=== PATIENT | female | born 1960 | race Caucasian/White ===

== ENCOUNTER → 2018-04-19 09:12 | Outpatient (CLI) | payer OTHER, SELFPAY ==
[2018-04-19 11:41] LABS: Hep C Virus Ab w/Reflex Quant NEGATIVE s/c (NEGATIVE)
== END ==
PROVIDERS: PCP Specialist; Visit Provider Specialist
DX: Z11.59 Encounter for screening for other viral diseases (principal)
CPT/HCPCS: 36415; 86803

== ENCOUNTER → 2018-10-15 16:04 | Outpatient (CLI) | payer OTHER, SELFPAY ==
[2018-10-15 18:17] LABS: Appearance Urine UA CLOUDY; Bilirubin Urine UA NEGATIVE (NEGATIVE); Color Urine UA YELLOW; Glucose Urine UA NEGATIVE (Normal); Ketones Urine UA NEGATIVE (NEGATIVE); Leukocyte Esterase Urine UA TRACE (NEGATIVE); Nitrite Urine UA NEGATIVE (Negative); Occult Blood Urine UA NEGATIVE (Negative); Protein Urine UA NEGATIVE (Negative); Specific Gravity Urine UA 1.025 (1.000-1.035); Urobilinogen Urine UA 0.2 E.U./dL (0.2)
[2018-10-15 18:28] LABS: Bacteria Urine Many (>30); Culture Indicated Urine Cult Not Indicated; Mucus Urine 1+ (Negative); RBC Urine 0-1/HPF (0-5/HPF); Squamous Epithelial Cell Urine >30 /HPF; Urine Comments EPI CONTAMINATION; WBC Urine 10-30/HPF (0-5/HPF)
== END ==
PROVIDERS: PCP Specialist; Visit Provider Specialist
DX: R30.0 Dysuria (principal)
CPT/HCPCS: 81001

== ENCOUNTER → 2018-10-16 15:59 | Outpatient (CLI) | payer OTHER, SELFPAY | PROVIDERS: PCP Specialist; Visit Provider Specialist | DX: R30.0 Dysuria (principal) | CPT/HCPCS: 87077; 87086 ==

== ENCOUNTER → 2019-05-21 09:42 | Outpatient (CLI) | payer OTHER, SELFPAY ==
[2019-05-21 16:41] LABS: Free T4, Direct Thyroxine 1.31 ng/dL (0.78-2.19)
[2019-05-21 16:55] LABS: Thyroid Stimulating Hormone 1.16 uIU/mL (0.47-4.68)
== END ==
PROVIDERS: PCP Specialist; Visit Provider Specialist
DX: E03.9 Hypothyroidism, unspecified (principal); R53.83 Other fatigue
CPT/HCPCS: 36415; 84439; 84443

== ENCOUNTER → 2021-01-01 09:37 | Outpatient (CLI) | payer OTHER, SELFPAY ==
[2021-01-01 11:13] LABS: COVID19 -Nasal RAPID Negative (Negative)
== END ==
PROVIDERS: Visit Provider Surgery
DX: Z01.812 Encounter for preprocedural laboratory examination (principal); Z20.822 Contact with and (suspected) exposure to COVID-19
CPT/HCPCS: 87635; C9803

== ENCOUNTER 2021-01-04 06:57 | Day surgery (SDC) | payer OTHER, SELFPAY ==
[2021-01-04] VITALS (8 sets, daily range): BP systolic 125–145; BP diastolic 74–89; PULSE 83–102; RESP 10–20; TEMP 36.6–36.9; O2SAT 95–99; BMI 25.7
--- NOTE | 2021-01-04 | PATH_ITS ---
[facility] Accession Number: [id number] . 01 Material submitted: . PART A: colon - TRANSVERSE COLON POLYP PART B: colon - CECUM POLYP . 01 Clinical history: . SDC . 02 Diagnosis: A. Transverse Colon, Polyp, Biopsy: Tubulovillous adenoma. No evidence of malignancy or high-grade dysplasia. . B. Cecum, Polyp, Biopsy: Tubular adenoma. I 01/07/2021 1333 Local . 02 Electronically signed: . Whitley Tovar MD, Pathologist NPI- [id number] . 01 Gross description: . A. Specimen A is received in formalin, labeled transverse colon polyp and consists of three kern-pink fragments of soft tissue, measuring 1.5 x 1.0 x 0.4 cm in aggregate. The specimen is entirely submitted in cassette A1. B. Specimen B is received in formalin, labeled cecum polyp and consists of a 0.4 x 0.3 x 0.2 cm kern fragment of soft tissue, which is entirely submitted in cassette B1. ([id number]) /[facility] 01/05/2021 1633 Local . 02 Pathologist provided ICD-10: D12.0, D12.3 . 02 CPT . 597966, [id number] Performed at: [address] [facility] [address], [place], [place] [id number] MD Randy Watson MD Phone: [phone] Performed at: 02 [facility] [address] [place], [place] [id number] MD Whitley Tovar MD Phone: [phone]
[2021-01-04] MEDS: LACTATED RINGERS 1,000 ML 200 ML IV (07:42)
--- NOTE | 2021-01-04 08:32 | PM.PREOP ---
Pre-operative Note Interval Note History & Physical reviewed/Exam performed by Physician: Yes Changes to H&P: No
[2021-01-04] MEDS: MIDAZOLAM 5 MG/5 ML VIAL IV (08:47)
[2021-01-04] MEDS: fentaNYL 250 MCG/5 ML INJ IV (09:02)
--- NOTE | 2021-01-04 09:15 | P.OP.ENDO_ITS ---
Operative Date/Time/Diagnoses Date of procedure: 01/04/21 Time of procedure: 09:15 Pre-op diagnosis: positive Cologaurd test Post-op diagnosis: same Procedure & Clinicians Study performed: colonoscopy Same procedure as scheduled: Yes Indications: 60F positive cologaurd test Surgeon: Hemant Prieto Procedure Notes Procedure in detail: Medications: Conscious sedation using 5mg IV midazolam and 200mcg IV of fentanyl The history and physical was performed/updated and the patient is ASA class is 1. The procedure was discussed in detail with the patient. Potential risks complications including infection, bleeding, missed diagnosis, perforation, need for surgery, and were explained. Their questions were answered and informed consent was obtained. Patient was brought to the procedure room and placed standard monitoring equipme nt. The patient's vital signs were monitored continuously throughout the entire procedure. Prior to starting time-out was performed. The patient was placed in the left lateral recumbent position. Procedural sedation was administered. Examination began with a thorough inspection of the perianal area there was no evidence of fissures, fistulae, external hemorrhoids or cutaneous malignancy. The colonoscopy scope was then placed into the anal canal and was advanced to the cecum, which was identified by the ileocecal valve, the appendiceal orifice and the confluence of the taenia. The scope was then slowly withdrawn examining colon thoroughly in all directions, irrigating it of any residual stool. 1 cm transverse colon pedunculated polyp removed with snare 3 mm cecal polyp removed with biopsy forceps The patient tolerated the procedure well. They will be discharged once criteria are met. The prep was of good/excellent quality. The withdrawl time was 11 minutes. The sedation time was 28 minutes. Specimen(s): other (Cecal, transverse polyps) Complications: none Impression: Colonic polyps Post-procedure Recommendations: Colonscopy in 5 years Disposition: same day surgery
--- NOTE | 2021-01-04 09:25 | SUR.PHASEI ---
Report given to QUAN Rogers.
== END 2021-01-04 10:09 | disposition home or self-care (01) ==
PROVIDERS: Referring Provider Surgery; Visit Provider Surgery
PROC: 0DJD8ZZ Inspection of Lower Intestinal Tract, Via Natural or Artificial Opening Endoscopic (ICD-10-PCS; CPT 45378; principal; 2021-01-04 08:30)
DX: R19.5 Other fecal abnormalities (principal); E03.9 Hypothyroidism, unspecified; D12.0 Benign neoplasm of cecum; D12.3 Benign neoplasm of transverse colon
CPT/HCPCS: 45385; 45380; 99152; 99153; J2250; J3010

== ENCOUNTER → 2023-05-10 07:09 | Outpatient (CLI) | payer OTHER, SELFPAY ==
--- NOTE | 2023-05-10 07:11 | DI.MG.S_ITS ---
BILATERAL DIGITAL SCREENING MAMMOGRAM 3D/2D WITH CAD: 05/10/2023 CLINICAL: Routine screening. No prior exams were available for comparison. Both breasts are heterogeneously dense, which may obscure small masses (category c / 51-75% glandular tissue). Current study was also evaluated with a Computer Aided Detection (CAD) system. No significant masses, calcifications, or other findings are seen in either breast. IMPRESSION: NEGATIVE There is no mammographic evidence of malignancy. A 1 year screening mammogram is recommended. Based on the Tyrer Cuzick model (a risk assessment model) the patient's lifetime risk is 11.3% and her 10 year risk is 4.9%. According to the ACR, ACS, and NCCN guidelines, an annual breast MRI exam along with mammogram is recommended if the patient's lifetime risk is 20% or greater. This exam was interpreted at Station ID: [id number]. NOTE: For mammograms, a report in lay terms will be sent to the patient. Approximately 15% of breast malignancies will not be visualized mammographically. In the management of a palpable breast mass, a negative mammogram must not discourage biopsy of a clinically suspicious lesion. Electronically Signed By: David tinsley/maria guadalupe:05/10/2023 13:54:20 letter sent: Normal Exam ACR BI-RADS Category 1: Negative [id number]
== END ==
PROVIDERS: Referring Provider Student in an Organized Health Care Education/Training Program; Visit Provider Student in an Organized Health Care Education/Training Program
DX: Z12.31 Encounter for screening mammogram for malignant neoplasm of breast (principal)
CPT/HCPCS: 77063; 77067